=== PATIENT | female | born 1975 | race Asian ===

== ENCOUNTER 2022-08-05 07:24 | Day surgery (SDC) | payer OTHER ==
[2022-08-03 15:10] VITALS: BMI 34.2
[2022-08-05 07:55] VITALS: RESP 18
[2022-08-05] MEDS ORDERED: INSULIN (NOVOLOG) ASPART 100 UNITS/ML 10ML VIAL SQ ONE (07:56)
[2022-08-05] MEDS ORDERED: SODIUM CHLORIDE 0.9% 500 ML INFUS.BAG IV ONE (08:00)
[2022-08-05] MEDS ORDERED: INSULIN REGULAR HUMAN 100 UNITS/ML *VIAL ONE (08:01)
[2022-08-05] MEDS ORDERED: KETOROLAC TROMETHAMINE 30 MG/1 ML VIAL ONE (09:02)
[2022-08-05] MEDS ORDERED: MIDAZOLAM HCL 2 MG/2 ML SINGLE DOSE VIAL ONE (09:02)
[2022-08-05] MEDS ORDERED: PROPOFOL 20 ML ONE (09:02)
[2022-08-05] MEDS ORDERED: ONDANSETRON 4 MG/2 ML VIAL ONE (09:02)
[2022-08-05] MEDS ORDERED: GLYCOPYRROLATE 0.2 MG/1 ML VIAL ONE (09:02)
[2022-08-05] MEDS ORDERED: PROPOFOL 40 ML ONE (09:28)
[2022-08-05] MEDS ORDERED: LIDOCAINE HCL/PF 2% SDV 5ML VIAL ONE (09:30)
[2022-08-05 10:02] VITALS: TEMP 97.5
[2022-08-05 10:15] VITALS: BP 130/89; PULSE 74
== END 2022-08-05 10:20 | disposition home or self-care (01) ==
LOC: FASU 07:24
PROVIDERS: ATTEND Orthopaedic Surgery Hand Surgery
PROC: 01N50ZZ Release Median Nerve, Open Approach (ICD-10-PCS; principal; 2022-08-05 09:25)
DX: G56.01 Carpal tunnel syndrome, right upper limb (principal)
CPT/HCPCS: 82962; 84703